=== PATIENT | male | born 1965 | race African-American/Black ===

== ENCOUNTER 2023-07-04 15:20 | Emergency (ER) | payer OTHER ==
[2023-07-04 15:29] VITALS: BMI 23.0
[2023-07-04] MEDS ORDERED: SODIUM CHLORIDE 0.9% 500 ML INFUS.BAG IV ONE ×2 (15:37→18:25)
[2023-07-04] MEDS ORDERED: KETOROLAC TROMETHAMINE 30 MG/1 ML VIAL IVPUSH ONE (15:37)
[2023-07-04] MEDS ORDERED: KETOROLAC TROMETHAMINE 30 MG/1 ML VIAL ONE (16:16)
[2023-07-04 16:26] LABS: BASO % 0.6 % (0-2.0); EOS % 4.3 % (0-4.5); HEMOGLOBIN 13.9 GM/dL (11.7-16.9); LYMPH % 22.4 % (8-40); MCHC 33.8 g/dl (32.0-35.9); MEAN CELL VOLUME 91.9 fl (80-96); MEAN PLT VOLUME 9.6 fl (7.5-11.1); MONO % 8.5 % (3.8-10.2); NEUT % 64.2 % (42.8-82.8); PLATELET COUNT 476 10^3/uL (134-434); RBC 4.47 M/mm3 (4.00-5.60); RDW 15.5 % (11.9-15.9)
[2023-07-04 16:41] LABS: POTASSIUM 4.2 mmol/L (3.5-5.1)
[2023-07-04 16:42] LABS: CALCIUM 8.3 mg/dL (8.5-10.1)
[2023-07-04 16:46] LABS: CREATININE 0.9 mg/dL (0.55-1.3)
[2023-07-04 17:08] LABS: EPI CELLS 24 /uL (0-25.1); HYALINE CASTS 2 /uL (0-3.1); PH,URINE 6.5 (5.0-8.0); URINE APPEARANCE TURBID; URINE BILIRUBIN NEGATIVE (NEGATIVE); URINE COLOR ORANGE; URINE GLUCOSE (UA) NEGATIVE (NEGATIVE); URINE KETONE NEGATIVE (NEGATIVE); URINE LEUK ESTERASE 3+ (NEGATIVE); URINE NITRITE NEGATIVE (NEGATIVE); URINE PROTEIN 2+ (NEGATIVE); URINE RBC 4935 /uL (0-23.9); URINE WBC 11309 /uL (0-25.8)
[2023-07-04] MEDS ORDERED: CEFTRIAXONE 1 GM in DEXTROSE 5%-WATER - 100 ML IVPB ONE (18:22)
[2023-07-04] MEDS ORDERED: TAMSULOSIN HCL 0.4 MG CAP PO ONE (18:25)
[2023-07-04] MEDS ORDERED: CEFTRIAXONE 1 GM/50 ML BAG ONE (18:53)
[2023-07-04] MEDS ORDERED: TAMSULOSIN HCL 0.4 MG CAP ONE (18:53)
[2023-07-04 19:39] LABS: URINE BACTERIA 330.7 /uL (0-1359)
[2023-07-04 19:40] LABS: URINE CRYSTALS FEW /hpf
[2023-07-04 21:12] VITALS: BP 146/73; PULSE 85; RESP 17; TEMP 98.1
[2023-07-04 21:40] LABS: EPI CELLS 28 /uL (0-25.1); HYALINE CASTS 3 /uL (0-3.1); PH,URINE 6.5 (5.0-8.0); URINE APPEARANCE TURBID; URINE BACTERIA 500 /uL (0-1359); URINE BILIRUBIN NEGATIVE (NEGATIVE); URINE COLOR YELLOW; URINE GLUCOSE (UA) NEGATIVE (NEGATIVE); URINE KETONE NEGATIVE (NEGATIVE); URINE LEUK ESTERASE 3+ (NEGATIVE); URINE NITRITE NEGATIVE (NEGATIVE); URINE PROTEIN 2+ (NEGATIVE); URINE RBC 671 /uL (0-23.9); URINE WBC 6364 /uL (0-25.8)
== END 2023-07-04 21:13 | disposition home or self-care (01) ==
LOC: JER 15:20
PROC: 3E03329 Introduction of Other Anti-infective into Peripheral Vein, Percutaneous Approach (ICD-10-PCS; principal; 2023-07-04)
PROC: 3E0333Z Introduction of Anti-inflammatory into Peripheral Vein, Percutaneous Approach (ICD-10-PCS; 2023-07-04)
DX: R10.9 Unspecified abdominal pain (principal); M54.9 Dorsalgia, unspecified; N20.0 Calculus of kidney; N30.01 Acute cystitis with hematuria
CPT/HCPCS: 36415; 74176-TC; 80048; 81003; 85025; 87086; 99284-25

== ENCOUNTER 2023-09-24 10:42 | Emergency (ER) | payer OTHER ==
[2023-09-24 11:14] VITALS: BMI 24.2
[2023-09-24 12:35] VITALS: RESP 20
[2023-09-24] MEDS ORDERED: BACITRACIN ZINC 15 GM TUBE TOPICAL OINTMENT ONE (13:47)
[2023-09-24 13:54] VITALS: BP 194/96; PULSE 64; TEMP 98.1
== END 2023-09-24 14:08 | disposition home or self-care (01) ==
LOC: JER 10:42
DX: S61.254A Open bite of right ring finger without damage to nail, initial encounter (principal); W54.0XXA Bitten by dog, initial encounter; Y92.009 Unspecified place in unspecified non-institutional (private) residence as the place of occurrence of the external cause
CPT/HCPCS: 99283-25

== ENCOUNTER 2023-12-27 15:05 | Inpatient (IN) | payer OTHER ==
[2023-12-27] MEDS ORDERED: ACETAMINOPHEN INJECTION 100 ML IVPB ONE (16:39)
[2023-12-27] MEDS ORDERED: ONDANSETRON 4 MG/2 ML VIAL ONE (16:39)
[2023-12-27] MEDS: ACETAMINOPHEN 1000 MG/100 ML BAG IVPB ONE (16:45)
[2023-12-27 16:52] LABS: BASO % 0.3 % (0-2.0); HEMATOCRIT 33.6 % (35.4-49); HEMOGLOBIN 11.1 GM/dL (11.7-16.9); LYMPH % 5.8 % (8-40); MCH 29.3 pg (25.7-33.7); MCHC 33.1 g/dl (32.0-35.9); MEAN CELL VOLUME 88.5 fl (80-96); MEAN PLT VOLUME 8.6 fl (7.5-11.1); MONO % 4.9 % (3.8-10.2); PLATELET COUNT 338 10^3/uL (134-434); RDW 15.5 % (11.9-15.9); WHITE BLOOD COUNT 17.8 K/mm3 (4.0-10.0)
[2023-12-27] MEDS: LACTATED RINGERS SOLUTION 1000 ML INFUS.BAG IV ONE ×2 (16:53→21:57)
[2023-12-27] MEDS: ONDANSETRON 4 MG/2 ML VIAL IVPUSH ONE (16:53)
[2023-12-27] MEDS: FAMOTIDINE 20 MG/50 ML IVPB 20 MG/50 ML MG IVPB ONE (16:54)
[2023-12-27 16:59] LABS: INR 1.38 (0.83-1.09); PROTHROMBIN TIME (PATIENT) 15.5 SEC (9.7-13.0)
[2023-12-27 17:01] LABS: ACTIVATED PTT 32.7 SECONDS (25.2-36.5)
[2023-12-27 17:14] LABS: CHLORIDE 105 mmol/L (98-107); SODIUM 132 mmol/L (136-145)
[2023-12-27 17:16] LABS: CALCIUM 8.9 mg/dL (8.5-10.1); CO2 17 mmol/L (21-32); GLUCOSE,RANDOM 79 mg/dL (74-106)
[2023-12-27 17:17] LABS: MAGNESIUM 2.5 mg/dL (1.8-2.4)
[2023-12-27 17:20] LABS: SGOT/AST 4 U/L (15-37); SGPT/ALT 24 U/L (13-61)
[2023-12-27 17:21] LABS: BILIRUBIN,TOTAL 0.3 mg/dL (0.2-1)
[2023-12-27 17:22] LABS: ALK PHOS 65 U/L (45-117)
[2023-12-27] MEDS ORDERED: morphine SULFATE 4 MG/ML VIAL ONE (17:22)
[2023-12-27] MEDS: morphine CARPU-JECT 4 MG/1 ML DISP.SYRIN IVPUSH ONE (17:23)
[2023-12-27 18:08] LABS: ANION GAP 10 mmol/L (4-13); BLOOD UREA NITROGEN 111.8 mg/dL (7-18); CREATININE 24.8 mg/dL (0.55-1.3); POTASSIUM 7.9 mmol/L (3.5-5.1)
[2023-12-27] MEDS ORDERED: ALBUTEROL SO4 2.5/IPRATROPIUM 0.5 INH SOL 3 ML VIAL.NEB. NEB ONE (18:20)
[2023-12-27] MEDS ORDERED: CALCIUM GLUC IN NACL, ISO-OSM 1 GM/50 ML BAG IVPB ONE (18:21)
[2023-12-27] MEDS ORDERED: FUROSEMIDE 40 MG/4 ML INJECTABLE VIAL ONE (18:21)
[2023-12-27] MEDS ORDERED: DEXTROSE 50%-WATER 25 GM/50 ML DISP.SYRIN ONE ×3 (18:21→22:30)
[2023-12-27] MEDS ORDERED: SODIUM ZIRCONIUM CYCLOSILICATE (LOKELMA) 10 GM PACKET ONE (18:21)
[2023-12-27] MEDS ORDERED: INSULIN REGULAR HUMAN 100 UNITS/ML *VIAL ONE (18:22)
[2023-12-27] MEDS: DEXTROSE 50%-WATER - 25 GM/50 ML VIAL IVPUSH ONE ×2 (18:55→22:48)
[2023-12-27] MEDS: CALCIUM GLUCONATE 10% - 1,000 MG/10 ML VIAL IVPB ONE (18:55)
[2023-12-27] MEDS: INSULIN REGULAR HUMAN 100 UNITS/ML *VIAL IVPUSH ONE ×2 (18:55→22:47)
[2023-12-27] MEDS: FUROSEMIDE 40 MG/4 ML INJECTABLE VIAL IVPUSH ONE (18:55)
[2023-12-27] MEDS: ALBUTEROL SO4 2.5/IPRATROPIUM 0.5 INH SOL 3 ML VIAL.NEB. NEB SCH (18:56)
[2023-12-27] MEDS: SODIUM ZIRCONIUM CYCLOSILICATE (LOKELMA) 5 GM PACKET PO ONE (18:57)
[2023-12-27] MEDS ORDERED: CEFTRIAXONE 1 GM/50 ML BAG ONE (19:33)
[2023-12-27 20:05] LABS: EPI CELLS 14 /uL (0-25.1); HYALINE CASTS 0 /uL (0-3.1); URINE APPEARANCE CLOUDY; URINE BACTERIA 5 /uL (0-1359); URINE BILIRUBIN NEGATIVE (NEGATIVE); URINE COLOR RED; URINE GLUCOSE (UA) 1+ (NEGATIVE); URINE KETONE NEGATIVE (NEGATIVE); URINE LEUK ESTERASE 2+ (NEGATIVE); URINE NITRITE NEGATIVE (NEGATIVE); URINE PROTEIN 1+ (NEGATIVE); URINE RBC 11529 /uL (0-23.9); URINE UROBILINOGEN 0.2 mg/dL (0.2-1.0); URINE WBC 149 /uL (0-25.8)
[2023-12-27] MEDS ORDERED: hydrALAZINE HCL 20 MG/ML VIAL ONE (20:17)
[2023-12-27] MEDS: hydrALAZINE HCL 20 MG/ML VIAL IVPUSH ONE (20:21)
[2023-12-27 21:08] LABS: VENOUS BASE EXCESS -12.7 mmol/L (-2-2); VENOUS O2 SATURATION 46.6 % (70-80); VENOUS PCO2 37.5 mmHg (38-52); VENOUS PH 7.204 (7.310-7.410)
[2023-12-27 21:22] LABS: CHLORIDE 104 mmol/L (98-107); SODIUM 135 mmol/L (136-145)
[2023-12-27 21:23] LABS: CHLORIDE 104 mmol/L (98-107); SODIUM 135 mmol/L (136-145)
[2023-12-27 21:23] LABS: CALCIUM 8.9 mg/dL (8.5-10.1)
[2023-12-27 21:24] LABS: CALCIUM 9.3 mg/dL (8.5-10.1)
[2023-12-27 21:24] LABS: CO2 18 mmol/L (21-32); GLUCOSE,RANDOM 193 mg/dL (74-106)
[2023-12-27 21:25] LABS: CO2 18 mmol/L (21-32); GLUCOSE,RANDOM 189 mg/dL (74-106)
[2023-12-27 21:52] LABS: ANION GAP 13 mmol/L (4-13); POTASSIUM 6.2 mmol/L (3.5-5.1)
[2023-12-27 21:53] LABS: ANION GAP 14 mmol/L (4-13); BLOOD UREA NITROGEN 105.4 mg/dL (7-18); POTASSIUM 6.1 mmol/L (3.5-5.1)
[2023-12-28] MEDS: SODIUM CHLORIDE 1,000 ML IV SCH (04:40)
[2023-12-28 07:57] LABS: BASO % 0.2 % (0-2.0); HEMATOCRIT 32.9 % (35.4-49); HEMOGLOBIN 10.7 GM/dL (11.7-16.9); LYMPH % 5.4 % (8-40); MCH 29.1 pg (25.7-33.7); MCHC 32.6 g/dl (32.0-35.9); MEAN CELL VOLUME 89.2 fl (80-96); MONO % 5.5 % (3.8-10.2); NEUT % 88.9 % (42.8-82.8); PLATELET COUNT 302 10^3/uL (134-434); RBC 3.68 M/mm3 (4.00-5.60); RDW 15.4 % (11.9-15.9); WHITE BLOOD COUNT 16.9 K/mm3 (4.0-10.0)
[2023-12-28 08:16] LABS: CHLORIDE 106 mmol/L (98-107); SODIUM 135 mmol/L (136-145)
[2023-12-28 08:18] LABS: ALBUMIN 3.3 g/dl (3.4-5.0); CALCIUM 8.8 mg/dL (8.5-10.1); CO2 18 mmol/L (21-32); GLUCOSE,RANDOM 83 mg/dL (74-106); MAGNESIUM 2.4 mg/dL (1.8-2.4)
[2023-12-28 08:21] LABS: PHOSPHOROUS 8.7 mg/dL (2.5-4.9); SGOT/AST 4 U/L (15-37); SGPT/ALT 17 U/L (13-61)
[2023-12-28 08:23] LABS: BILIRUBIN,TOTAL 0.4 mg/dL (0.2-1)
[2023-12-28 08:24] LABS: ALK PHOS 61 U/L (45-117)
[2023-12-28 08:34] LABS: ANION GAP 11 mmol/L (4-13); BLOOD UREA NITROGEN 111.5 mg/dL (7-18)
[2023-12-28] MEDS: PIPERACILLIN/TAZOB 3.375 GM 3.375 GM in DEXTROSE 5%-WATER - 50 ML IVPB ONE (08:51)
[2023-12-28] MEDS ORDERED: SODIUM CHLORIDE 250 ML IV PRN (09:07)
[2023-12-28] MEDS: NICOTINE 21 MG/24 HOURS TOPICAL PATCH TD SCH (09:12)
[2023-12-28] MEDS: ALBUTEROL SO4 0.083% IH SOL 2.5 MG/3 ML VIAL.NEB. NEB ONE (09:13)
[2023-12-28] MEDS: CALCIUM GLUCONATE 10% - 1,000 MG/10 ML VIAL IVPB ONE (09:27)
[2023-12-28] MEDS: MIDAZOLAM HCL 2 MG/2 ML SINGLE DOSE VIAL IVPUSH ONE (10:25)
[2023-12-28] MEDS: FENTANYL CITRATE/PF 50 MCG/ML VIAL IVPUSH ONE (10:25)
[2023-12-28] MEDS ORDERED: SODIUM CHLORIDE 1,000 ML IV SCH (11:24)
[2023-12-28] MEDS: LABETALOL HCL 5 MG/1 ML (100MG/20 ML VIAL) IVPUSH ONE (15:49)
[2023-12-28 16:37] LABS: CHLORIDE 103 mmol/L (98-107); POTASSIUM 4.8 mmol/L (3.5-5.1); SODIUM 140 mmol/L (136-145)
[2023-12-28 16:39] LABS: CALCIUM 8.9 mg/dL (8.5-10.1)
[2023-12-28 16:40] LABS: ALBUMIN 3.2 g/dl (3.4-5.0); ANION GAP 11 mmol/L (4-13); CO2 26 mmol/L (21-32); GLUCOSE,RANDOM 77 mg/dL (74-106)
[2023-12-28 16:43] LABS: SGOT/AST 5 U/L (15-37); SGPT/ALT 17 U/L (13-61)
[2023-12-28] MEDS: hydrALAZINE HCL 20 MG/ML VIAL IVPUSH PRN (16:43)
[2023-12-28 16:44] LABS: TOT PROT 6.9 g/dl (6.4-8.2)
[2023-12-28 16:45] LABS: BILIRUBIN,TOTAL 0.4 mg/dL (0.2-1)
[2023-12-28 16:46] LABS: ALK PHOS 58 U/L (45-117)
[2023-12-28 16:47] LABS: BLOOD UREA NITROGEN 60.3 mg/dL (7-18); CREATININE 14.2 mg/dL (0.55-1.3)
[2023-12-28] MEDS ORDERED: SODIUM ZIRCONIUM CYCLOSILICATE (LOKELMA) 5 GM PACKET PO ONE (18:13)
[2023-12-28] MEDS: amLODIPine BESYLATE 10 MG TABLET (FP) PO SCH (21:00)
[2023-12-28] MEDS ORDERED: SODIUM ZIRCONIUM CYCLOSILICATE (LOKELMA) 5 GM PACKET PO SCH (22:10)
[2023-12-28] MEDS: SODIUM ZIRCONIUM CYCLOSILICATE (LOKELMA) 5 GM PACKET PO SCH (23:19)
[2023-12-29 06:56] LABS: BASO % 0.3 % (0-2.0); EOS % 1.2 % (0-4.5); HEMATOCRIT 32.7 % (35.4-49); HEMOGLOBIN 10.8 GM/dL (11.7-16.9); LYMPH % 10.9 % (8-40); MCH 29.6 pg (25.7-33.7); MEAN CELL VOLUME 89.7 fl (80-96); MEAN PLT VOLUME 9.1 fl (7.5-11.1); MONO % 8.5 % (3.8-10.2); NEUT % 79.1 % (42.8-82.8); PLATELET COUNT 313 10^3/uL (134-434); RBC 3.65 M/mm3 (4.00-5.60); RDW 15.7 % (11.9-15.9); WHITE BLOOD COUNT 13.8 K/mm3 (4.0-10.0)
[2023-12-29 07:07] LABS: CHLORIDE 105 mmol/L (98-107); POTASSIUM 5.4 mmol/L (3.5-5.1); SODIUM 141 mmol/L (136-145)
[2023-12-29 07:13] LABS: ALBUMIN 3.2 g/dl (3.4-5.0); ANION GAP 10 mmol/L (4-13); CALCIUM 8.8 mg/dL (8.5-10.1); CO2 25 mmol/L (21-32); GLUCOSE,RANDOM 106 mg/dL (74-106); MAGNESIUM 2.1 mg/dL (1.8-2.4)
[2023-12-29 07:16] LABS: SGOT/AST 6 U/L (15-37); SGPT/ALT 14 U/L (13-61)
[2023-12-29 07:17] LABS: BLOOD UREA NITROGEN 62.2 mg/dL (7-18); PHOSPHOROUS 8.4 mg/dL (2.5-4.9)
[2023-12-29 07:18] LABS: BILIRUBIN,TOTAL 0.4 mg/dL (0.2-1); TOT PROT 7.1 g/dl (6.4-8.2)
[2023-12-29 07:19] LABS: ALK PHOS 55 U/L (45-117)
[2023-12-29 07:27] LABS: CREATININE 14.6 mg/dL (0.55-1.3)
[2023-12-29 08:11] LABS: IRON SERUM 36 ug/dL (50-175); TOTAL IRON BINDING CAPACITY 196 ug/dL (250-450)
[2023-12-29 09:28] LABS: RETICULOCYTES 1.36 % (0.5-1.5)
[2023-12-29] MEDS: NICOTINE 21 MG/24 HOURS TOPICAL PATCH TD SCH (10:26)
[2023-12-29] MEDS: SODIUM ZIRCONIUM CYCLOSILICATE (LOKELMA) 5 GM PACKET PO SCH (11:27)
[2023-12-29] MEDS ORDERED: MIDAZOLAM HCL 2 MG/2 ML SINGLE DOSE VIAL ONE (13:23)
[2023-12-29] MEDS: FENTANYL CITRATE/PF 50 MCG/ML VIAL IVPUSH ONE (13:40)
[2023-12-29] MEDS: MIDAZOLAM HCL 2 MG/2 ML SINGLE DOSE VIAL IVPUSH ONE (13:40)
[2023-12-29] MEDS: SODIUM CHLORIDE 0.45% 1,000 ML IV SCH (15:26)
[2023-12-30 06:46] LABS: MCH 29.3 pg (25.7-33.7); MCHC 32.3 g/dl (32.0-35.9); MEAN CELL VOLUME 90.9 fl (80-96); MEAN PLT VOLUME 8.9 fl (7.5-11.1); PLATELET COUNT 295 10^3/uL (134-434); RBC 3.41 M/mm3 (4.00-5.60); RDW 15.5 % (11.9-15.9); WHITE BLOOD COUNT 11.3 K/mm3 (4.0-10.0)
[2023-12-30 07:00] LABS: CHLORIDE 102 mmol/L (98-107); POTASSIUM 4.5 mmol/L (3.5-5.1); SODIUM 138 mmol/L (136-145)
[2023-12-30 07:03] LABS: ANION GAP 10 mmol/L (4-13); CALCIUM 8.3 mg/dL (8.5-10.1); CO2 26 mmol/L (21-32)
[2023-12-30 07:04] LABS: BLOOD UREA NITROGEN 61.2 mg/dL (7-18); GLUCOSE,RANDOM 129 mg/dL (74-106)
[2023-12-30 07:06] LABS: SGOT/AST 5 U/L (15-37); SGPT/ALT 12 U/L (13-61)
[2023-12-30 07:07] LABS: PHOSPHOROUS 7.3 mg/dL (2.5-4.9)
[2023-12-30 07:08] LABS: BILIRUBIN,TOTAL 0.4 mg/dL (0.2-1); TOT PROT 6.7 g/dl (6.4-8.2)
[2023-12-30 07:09] LABS: ALK PHOS 50 U/L (45-117)
[2023-12-30 07:35] LABS: CREATININE 13.1 mg/dL (0.55-1.3)
[2023-12-30] MEDS ORDERED: SODIUM CHLORIDE 250 ML IV PRN (08:38)
[2023-12-30] MEDS: HEPARIN NA (PORCINE) 5,000 UNITS/ML 1ML VIAL SQ SCH (21:38)
[2023-12-30] MEDS: ACETAMINOPHEN 1000 MG/100 ML BAG IVPB PRN (21:48)
[2023-12-31] MEDS ORDERED: DEXTROSE 50%-WATER 25 GM/50 ML DISP.SYRIN ONE (00:02)
[2023-12-31 06:42] LABS: HEMATOCRIT 30.9 % (35.4-49); HEMOGLOBIN 10.3 GM/dL (11.7-16.9); MCHC 33.3 g/dl (32.0-35.9); MEAN CELL VOLUME 89.9 fl (80-96); MEAN PLT VOLUME 8.2 fl (7.5-11.1); PLATELET COUNT 269 10^3/uL (134-434); RBC 3.44 M/mm3 (4.00-5.60); WHITE BLOOD COUNT 7.5 K/mm3 (4.0-10.0)
[2023-12-31 07:00] LABS: CHLORIDE 100 mmol/L (98-107); POTASSIUM 3.5 mmol/L (3.5-5.1); SODIUM 137 mmol/L (136-145)
[2023-12-31 07:05] LABS: ANION GAP 9 mmol/L (4-13); BLOOD UREA NITROGEN 37.3 mg/dL (7-18); CALCIUM 7.7 mg/dL (8.5-10.1); CO2 27 mmol/L (21-32); GLUCOSE,RANDOM 85 mg/dL (74-106); MAGNESIUM 1.7 mg/dL (1.8-2.4)
[2023-12-31 07:08] LABS: PHOSPHOROUS 5.5 mg/dL (2.5-4.9); SGOT/AST 12 U/L (15-37); SGPT/ALT 14 U/L (13-61)
[2023-12-31 07:10] LABS: BILIRUBIN,TOTAL 0.4 mg/dL (0.2-1); TOT PROT 6.6 g/dl (6.4-8.2)
[2023-12-31 07:11] LABS: ALK PHOS 46 U/L (45-117)
[2023-12-31] MEDS: MAGNESIUM OXIDE 400 MG TABLET (FP) PO ONE (12:21)
[2023-12-31] MEDS ORDERED: hydrALAZINE HCL 20 MG/ML VIAL IVPUSH PRN (17:19)
[2023-12-31] MEDS: SODIUM CHLORIDE 0.45% 1,000 ML IV SCH (18:00)
[2023-12-31] MEDS: ACETAMINOPHEN 325 MG TABLET (FP) PO ONE (23:23)
[2024-01-01 07:46] LABS: HEMATOCRIT 29.8 % (35.4-49); HEMOGLOBIN 9.9 GM/dL (11.7-16.9); MCH 29.9 pg (25.7-33.7); MCHC 33.2 g/dl (32.0-35.9); MEAN CELL VOLUME 89.9 fl (80-96); MEAN PLT VOLUME 8.5 fl (7.5-11.1); PLATELET COUNT 309 10^3/uL (134-434); RBC 3.32 M/mm3 (4.00-5.60); RDW 15.2 % (11.9-15.9)
[2024-01-01 08:10] LABS: CHLORIDE 102 mmol/L (98-107); POTASSIUM 4.2 mmol/L (3.5-5.1); SODIUM 138 mmol/L (136-145)
[2024-01-01 08:11] LABS: ANION GAP 8 mmol/L (4-13); BLOOD UREA NITROGEN 51.9 mg/dL (7-18); CALCIUM 8.1 mg/dL (8.5-10.1); CO2 28 mmol/L (21-32); GLUCOSE,RANDOM 82 mg/dL (74-106); MAGNESIUM 2.2 mg/dL (1.8-2.4)
[2024-01-01 08:14] LABS: SGOT/AST 17 U/L (15-37)
[2024-01-01 08:15] LABS: SGPT/ALT 24 U/L (13-61)
[2024-01-01 08:16] LABS: ALK PHOS 50 U/L (45-117); BILIRUBIN,TOTAL 0.3 mg/dL (0.2-1); TOT PROT 6.4 g/dl (6.4-8.2)
[2024-01-01 08:18] LABS: CREATININE 7.5 mg/dL (0.55-1.3)
[2024-01-01] MEDS: amLODIPine BESYLATE 10 MG TABLET (FP) PO SCH (09:10)
[2024-01-01] MEDS: NICOTINE 21 MG/24 HOURS TOPICAL PATCH TD SCH (09:15)
[2024-01-01] MEDS ORDERED: SODIUM CHLORIDE 250 ML IV PRN ×2 (13:47→22:12)
[2024-01-01] MEDS ORDERED: ONDANSETRON 4 MG/2 ML VIAL IVPUSH PRN ×2 (18:51→22:12)
[2024-01-01] MEDS ORDERED: LIDOCAINE HCL/PF 2% SDV 5ML VIAL ONE (19:49)
[2024-01-01] MEDS ORDERED: PROPOFOL 20 ML ONE (19:50)
[2024-01-01] MEDS ORDERED: FENTANYL CITRATE/PF 50 MCG/ML VIAL ONE (20:23)
[2024-01-01] MEDS ORDERED: MIDAZOLAM HCL 2 MG/2 ML SINGLE DOSE VIAL ONE (20:23)
[2024-01-01] MEDS ORDERED: ACETAMINOPHEN INJECTION 100 ML IVPB ONE (20:24)
[2024-01-01] MEDS: ceFAZolin SODIUM 1 GM VIAL IVPB ONE (20:30)
[2024-01-01] MEDS: GENTAMICIN SO4 80 MG/2 ML VIAL IVPB ONE (20:30)
[2024-01-01] MEDS ORDERED: GENTAMICIN SO4 80 MG/2 ML VIAL ONE (20:35)
[2024-01-01] MEDS ORDERED: ceFAZolin SODIUM 1 GM VIAL ONE (20:35)
[2024-01-01] MEDS ORDERED: SODIUM CHLORIDE 0.9% P/F 10 ML VIAL IJ ONE (20:35)
[2024-01-01] MEDS ORDERED: ePHEDrine SULFATE 50 MG/1 ML AMPULE ONE (21:08)
[2024-01-01] MEDS ORDERED: METHYLENE BLUE 50 MG/10 ML AMPUL ONE (21:11)
[2024-01-01] MEDS ORDERED: hydrALAZINE HCL 20 MG/ML VIAL IVPUSH PRN (22:12)
[2024-01-01] MEDS: SODIUM CHLORIDE 1,000 ML IV SCH ×2 (22:30→23:30)
[2024-01-01 23:17] VITALS: RESP 18
[2024-01-02] MEDS: ACETAMINOPHEN 325 MG TABLET (FP) PO ONE ×2 (05:19→14:16)
[2024-01-02 07:49] LABS: HEMATOCRIT 30.7 % (35.4-49); MCH 29.4 pg (25.7-33.7); MCHC 32.4 g/dl (32.0-35.9); MEAN CELL VOLUME 90.8 fl (80-96); MEAN PLT VOLUME 8.1 fl (7.5-11.1); PLATELET COUNT 340 10^3/uL (134-434); RBC 3.38 M/mm3 (4.00-5.60); RDW 15.4 % (11.9-15.9); WHITE BLOOD COUNT 10.1 K/mm3 (4.0-10.0)
[2024-01-02 08:11] LABS: CHLORIDE 102 mmol/L (98-107); SODIUM 135 mmol/L (136-145)
[2024-01-02 08:14] LABS: ALBUMIN 3.1 g/dl (3.4-5.0); ANION GAP 8 mmol/L (4-13); BLOOD UREA NITROGEN 63.6 mg/dL (7-18); CALCIUM 8.4 mg/dL (8.5-10.1); CO2 25 mmol/L (21-32); GLUCOSE,RANDOM 159 mg/dL (74-106); MAGNESIUM 2.2 mg/dL (1.8-2.4)
[2024-01-02 08:18] LABS: BILIRUBIN,TOTAL 0.3 mg/dL (0.2-1); PHOSPHOROUS 5.6 mg/dL (2.5-4.9); SGOT/AST 13 U/L (15-37); SGPT/ALT 19 U/L (13-61)
[2024-01-02 08:20] LABS: TOT PROT 7.1 g/dl (6.4-8.2)
[2024-01-02 08:21] LABS: ALK PHOS 50 U/L (45-117)
[2024-01-02 08:26] LABS: CREATININE 8.1 mg/dL (0.55-1.3)
[2024-01-02] MEDS: amLODIPine BESYLATE 10 MG TABLET (FP) PO SCH (14:11)
[2024-01-02] MEDS: NICOTINE 21 MG/24 HOURS TOPICAL PATCH TD SCH (14:34)
[2024-01-02] MEDS: ACETAMINOPHEN 325 MG TABLET (FP) PO PRN (18:57)
[2024-01-03 08:18] LABS: HEMATOCRIT 26.5 % (35.4-49); HEMOGLOBIN 8.8 GM/dL (11.7-16.9); MCH 30.2 pg (25.7-33.7); MCHC 33.3 g/dl (32.0-35.9); MEAN CELL VOLUME 90.7 fl (80-96); MEAN PLT VOLUME 8.4 fl (7.5-11.1); PLATELET COUNT 312 10^3/uL (134-434); RBC 2.92 M/mm3 (4.00-5.60); RDW 14.9 % (11.9-15.9); WHITE BLOOD COUNT 11.9 K/mm3 (4.0-10.0)
[2024-01-03 08:33] LABS: POTASSIUM 4.2 mmol/L (3.5-5.1)
[2024-01-03 08:35] LABS: CALCIUM 8.4 mg/dL (8.5-10.1)
[2024-01-03 08:36] LABS: BLOOD UREA NITROGEN 43.2 mg/dL (7-18)
[2024-01-03 08:40] LABS: CREATININE 4.7 mg/dL (0.55-1.3); PHOSPHOROUS 3.6 mg/dL (2.5-4.9)
[2024-01-03 13:51] VITALS: BMI 19.7
[2024-01-03] MEDS: SODIUM CHLORIDE 0.45% 1,000 ML IV SCH (14:01)
[2024-01-04 09:12] LABS: HEMATOCRIT 29.2 % (35.4-49); HEMOGLOBIN 9.6 GM/dL (11.7-16.9); MCH 29.8 pg (25.7-33.7); MEAN CELL VOLUME 90.3 fl (80-96); MEAN PLT VOLUME 8.1 fl (7.5-11.1); PLATELET COUNT 377 10^3/uL (134-434); RBC 3.23 M/mm3 (4.00-5.60); RDW 15.3 % (11.9-15.9); WHITE BLOOD COUNT 10.2 K/mm3 (4.0-10.0)
[2024-01-04 09:25] LABS: POTASSIUM 4.5 mmol/L (3.5-5.1)
[2024-01-04 09:33] LABS: BLOOD UREA NITROGEN 62.7 mg/dL (7-18); CALCIUM 8.3 mg/dL (8.5-10.1)
[2024-01-04 09:36] LABS: CREATININE 5.3 mg/dL (0.55-1.3)
[2024-01-04 10:46] LABS: ANISOCYTOSIS 0; HELMET CELLS 0; HOWELL-JOLLY BODIES 0; MACROCYTOSIS 0; OVALOCYTE 0; ROULEAU 0; SICKELED CELLS 0; TARGET CELLS 0; TEAR DROP CELLS 0; TOXIC GRANULATION 0
[2024-01-05 05:37] VITALS: TEMP 97.6
[2024-01-05] MEDS ORDERED: hydrALAZINE HCL 10 MG TABLET PO PRN (08:15)
[2024-01-05 08:31] LABS: HEMATOCRIT 30.9 % (35.4-49); MCH 29.5 pg (25.7-33.7); MCHC 32.3 g/dl (32.0-35.9); MEAN CELL VOLUME 91.3 fl (80-96); MEAN PLT VOLUME 8.5 fl (7.5-11.1); PLATELET COUNT 410 10^3/uL (134-434); RBC 3.38 M/mm3 (4.00-5.60); RDW 15.4 % (11.9-15.9); WHITE BLOOD COUNT 10.6 K/mm3 (4.0-10.0)
[2024-01-05 08:55] LABS: POTASSIUM 4.7 mmol/L (3.5-5.1)
[2024-01-05 09:00] LABS: CALCIUM 8.5 mg/dL (8.5-10.1)
[2024-01-05 09:04] LABS: CREATININE 5.3 mg/dL (0.55-1.3)
[2024-01-05 16:16] VITALS: BP 128/72; PULSE 72
[2024-01-09 15:09] LABS: CA OXALATE MONOHYDR. 100 % (.); SIZE 3x3 mm (.); WEIGHT 32 mg (.)
== END 2024-01-05 18:10 | disposition home or self-care (01) | DRG 443 ==
LOC: JER 15:05 → JERBED 19:31 → J4S 22:05 → J2W 12-28 09:36 → J6S 12-31 17:01
PROVIDERS: ADMIT Internal Medicine; ATTEND Internal Medicine
PROC: 05HM33Z Insertion of Infusion Device into Right Internal Jugular Vein, Percutaneous Approach (ICD-10-PCS; principal; 2023-12-27)
PROC: B543ZZA Ultrasonography of Right Jugular Veins, Guidance (ICD-10-PCS; 2023-12-27)
PROC: BT14ZZZ Fluoroscopy of Kidneys, Ureters and Bladder (ICD-10-PCS; 2023-12-27)
PROC: 0T788DZ Dilation of Bilateral Ureters with Intraluminal Device, Via Natural or Artificial Opening Endoscopic (ICD-10-PCS; 2023-12-27)
PROC: 0TC78ZZ Extirpation of Matter from Left Ureter, Via Natural or Artificial Opening Endoscopic (ICD-10-PCS; 2023-12-27)
PROC: BT03ZZZ Plain Radiography of Bilateral Kidneys (ICD-10-PCS; 2023-12-27)
PROC: 0TP5X0Z Removal of Drainage Device from Kidney, External Approach (ICD-10-PCS; 2023-12-27)
PROC: 5A1D70Z Performance of Urinary Filtration, Intermittent, Less than 6 Hours Per Day (ICD-10-PCS; 2024-01-02)
PROC: 0T9430Z Drainage of Left Kidney Pelvis with Drainage Device, Percutaneous Approach (ICD-10-PCS; 2024-01-02)
PROC: 0T9330Z Drainage of Right Kidney Pelvis with Drainage Device, Percutaneous Approach (ICD-10-PCS; 2024-01-02)
DX: N17.9 Acute kidney failure, unspecified (principal); E87.20 Acidosis, unspecified; E87.5 Hyperkalemia; R18.8 Other ascites; N13.4 Hydroureter; N13.8 Other obstructive and reflux uropathy; I12.9 Hypertensive chronic kidney disease with stage 1 through stage 4 chronic kidney disease, or unspecified chronic kidney disease; N18.9 Chronic kidney disease, unspecified; N13.2 Hydronephrosis with renal and ureteral calculous obstruction; R63.0 Anorexia; E46 Unspecified protein-calorie malnutrition; Z68.20 Body mass index [BMI] 20.0-20.9, adult; D64.9 Anemia, unspecified; F17.210 Nicotine dependence, cigarettes, uncomplicated; I16.1 Hypertensive emergency; D72.829 Elevated white blood cell count, unspecified
CPT/HCPCS: 36415; 50432; 71045-TC-FY; 71046-TC-FY; 71250-TC; 74176-TC; 76000-TC-FY; 76775-TC; 80048; 80053; 81003; 82360; 82550; 82728; 82803; 82962; 83540; 83550; 83605; 83690; 83735; 84100; 84484; 85025; 85027; 85045; 85610; 85730; 86704; 86705; 86803; 86850; 86900; 86901; 87086; 87340; 87517; 88300-TC; 93005; 93010; 94760; 99285-25; C2617; J0131; J1644; Q9968

== ENCOUNTER 2024-11-25 11:54 | Inpatient (IN) | payer OTHER ==
[2024-11-25] MEDS ORDERED: ACETAMINOPHEN INJECTION 100 ML ONE (12:51)
[2024-11-25] MEDS ORDERED: ONDANSETRON 4 MG/2 ML VIAL ONE (12:52)
[2024-11-25 13:19] LABS: BASOPHILS # 0.07 x10^3/uL (0.01-0.08); EOSINOPHIL % 0.3 % (0.8-7.0); EOSINOPHILS # 0.04 x10^3/uL (0.04-0.54); HEMATOCRIT 32.7 % (40.1-51.0); HEMOGLOBIN 10.7 g/dL (13.7-17.5); MCHC 32.7 g/dl (32.3-36.5); MEAN CELL VOLUME 90.1 fl (79.0-92.2); MONOCYTE # 1.33 x10^3/uL (0.30-0.82); MONOCYTE % 8.6 % (5.3-12.2); PLATELET COUNT 300 x10^3/uL (163-337); RDW 15.2 % (12.2-16.1)
[2024-11-25 13:25] LABS: VENOUS BASE EXCESS -1.6 mmol/L (-2-2); VENOUS O2 SATURATION 83.2 % (70-80); VENOUS PCO2 32.6 mmHg (38-52); VENOUS PH 7.443 (7.310-7.410)
[2024-11-25] MEDS: ONDANSETRON 4 MG/2 ML VIAL IVPUSH ONE (13:30)
[2024-11-25] MEDS: SODIUM CHLORIDE 0.9% 1000 ML INFUS.BAG IV ONE (13:35)
[2024-11-25] MEDS: ACETAMINOPHEN 1000 MG/100 ML BAG IVPB ONE ×2 (13:36→21:22)
[2024-11-25 13:45] LABS: EPI CELLS 1 /uL (0-25.1); HYALINE CASTS 1 /uL (0-3.1); URINE APPEARANCE CLEAR; URINE BACTERIA 102 /uL (0-1359); URINE BILIRUBIN NEGATIVE (NEGATIVE); URINE COLOR YELLOW; URINE GLUCOSE (UA) NEGATIVE (NEGATIVE); URINE KETONE NEGATIVE (NEGATIVE); URINE LEUK ESTERASE 3+ (NEGATIVE); URINE NITRITE NEGATIVE (NEGATIVE); URINE PROTEIN TRACE (NEGATIVE); URINE RBC 41 /uL (0-23.9); URINE UROBILINOGEN 0.2 mg/dL (0.2-1.0); URINE WBC 847 /uL (0-25.8)
[2024-11-25 13:51] LABS: POTASSIUM 4.7 mmol/L (3.5-5.1)
[2024-11-25 13:55] LABS: ALBUMIN 3.6 g/dl (3.4-5.0); BLOOD UREA NITROGEN 32.6 mg/dL (7-18); CALCIUM 8.7 mg/dL (8.5-10.1)
[2024-11-25 13:58] LABS: CREATININE 3.8 mg/dL (0.55-1.3)
[2024-11-25 14:00] LABS: BILIRUBIN,TOTAL 0.4 mg/dL (0.2-1); TOT PROT 7.4 g/dl (6.4-8.2)
[2024-11-25] MEDS ORDERED: PIPERACILLIN/TAZOB 3.375 GM 3.375 GM/50 ML BAG IVPB ONE (14:04)
[2024-11-25] MEDS: PIPERACILLIN/TAZOB 3.375 GM 3.375 GM in DEXTROSE 5%-WATER - 50 ML IVPB ONE (14:08)
[2024-11-25] MEDS: SODIUM CHLORIDE 1,000 ML IV STA (16:45)
[2024-11-25] MEDS ORDERED: SODIUM CHLORIDE 1,000 ML IV SCH (17:26)
[2024-11-25] MEDS: SODIUM CHLORIDE 1,000 ML IV SCH ×2 (17:29→19:30)
[2024-11-25] MEDS ORDERED: ACETAMINOPHEN 325 MG TABLET (FP) ONE (17:33)
[2024-11-25] MEDS ORDERED: VANCOMYCIN 1 GM PREMIX (F) 1 GM/200 ML BAG ONE (17:33)
[2024-11-25] MEDS: ACETAMINOPHEN 325 MG TABLET (FP) PO ONE (17:34)
[2024-11-25] MEDS: VANCOMYCIN 1 GM PREMIX (F) 1 GM/200 ML BAG IVPB ONE (17:38)
[2024-11-25] MEDS ORDERED: ACETAMINOPHEN 325 MG TABLET (FP) PO PRN (20:00)
[2024-11-25] MEDS ORDERED: ONDANSETRON 4 MG/2 ML VIAL IVPUSH PRN (20:20)
[2024-11-25] MEDS: FERROUS GLUCONATE 324 MG TAB (FP) PO SCH (21:24)
[2024-11-25] MEDS: PIPERACILLIN/TAZOB 2.25 GM 2.25 GM/50 ML BAG IVPB SCH (21:24)
[2024-11-25] MEDS ORDERED: PIPERACILLIN/TAZOB 2.25 GM 2.25 GM in DEXTROSE 5%-WATER - 50 ML IVPB SCH (22:00)
[2024-11-26 00:24] LABS: HCV DIAGNOSTIC IN-HOUSE W/RFLX NON-REACTIVE (NONREACTIVE)
[2024-11-26 00:26] LABS: HIV INTERPRETATION NEGATIVE (NEGATIVE)
[2024-11-26] MEDS ORDERED: diphenhydrAMINE HCL 25 MG CAPSULE (FP) PO ONE (00:39)
[2024-11-26] MEDS: diphenhydrAMINE HCL 25 MG CAPSULE (FP) PO ONE (03:33)
[2024-11-26 06:48] LABS: HEMATOCRIT 31.3 % (40.1-51.0); HEMOGLOBIN 9.7 g/dL (13.7-17.5); MEAN PLT VOLUME 11.1 fl (9.4-12.4); PLATELET COUNT 227 x10^3/uL (163-337); RDW 15.9 % (12.2-16.1)
[2024-11-26 06:52] LABS: POTASSIUM 5.2 mmol/L (3.5-5.1)
[2024-11-26 06:59] LABS: CALCIUM 7.8 mg/dL (8.5-10.1)
[2024-11-26 07:00] LABS: ALBUMIN 2.8 g/dl (3.4-5.0); MAGNESIUM 1.7 mg/dL (1.8-2.4)
[2024-11-26 07:02] LABS: CREATININE 4.5 mg/dL (0.55-1.3)
[2024-11-26 07:03] LABS: BILIRUBIN,TOTAL 0.6 mg/dL (0.2-1)
[2024-11-26] MEDS: TAMSULOSIN HCL 0.4 MG CAP PO SCH (09:01)
[2024-11-26] MEDS: MAGNESIUM SULFATE IN WATER 2 GM/50 ML IVPB IVPB ONE (09:01)
[2024-11-26] MEDS: SODIUM ZIRCONIUM CYCLOSILICATE (LOKELMA) 5 GM PACKET PO SCH (09:07)
[2024-11-26] MEDS: NICOTINE 21 MG/24 HOURS TOPICAL PATCH TD SCH (09:07)
[2024-11-26] MEDS: ACETAMINOPHEN 325 MG TABLET (FP) PO PRN (13:10)
[2024-11-26] MEDS ORDERED: ONDANSETRON 4 MG/2 ML VIAL IVPUSH PRN ×3 (17:00→18:26)
[2024-11-26] MEDS ORDERED: LACTATED RINGERS SOLUTION 1,000 ML IV SCH (17:00)
[2024-11-26] MEDS ORDERED: PROPOFOL 20 ML ONE (17:15)
[2024-11-26] MEDS ORDERED: ROCURONIUM BROMIDE 50 MG/5 ML SYRINGE ONE (17:16)
[2024-11-26] MEDS: ceFAZolin SODIUM 1 GM VIAL IVPB ONE (17:30)
[2024-11-26] MEDS: GENTAMICIN 80MG PREMIX BAG IVPB ONE (17:30)
[2024-11-26] MEDS ORDERED: NEOSTIGMINE METHYLSULFATE 0.5 MG/1 ML - 10 ML MDV ONE (17:57)
[2024-11-26] MEDS: PIPERACILLIN/TAZOB 2.25 GM 2.25 GM in DEXTROSE 5%-WATER - 50 ML IVPB SCH (18:02)
[2024-11-26] MEDS: LACTATED RINGERS SOLUTION 1,000 ML IV SCH (18:32)
[2024-11-26] MEDS ORDERED: PIPERACILLIN/TAZOB 2.25 GM 2.25 GM in DEXTROSE 5%-WATER - 50 ML IVPB SCH ×2 (19:00→22:00)
[2024-11-26] MEDS: FERROUS GLUCONATE 324 MG TAB (FP) PO SCH (21:22)
[2024-11-26] MEDS: PIPERACILLIN/TAZOB 2.25 GM 2.25 GM/50 ML BAG IVPB SCH (21:37)
[2024-11-27 06:51] LABS: HEMATOCRIT 29.5 % (40.1-51.0); HEMOGLOBIN 9.4 g/dL (13.7-17.5); MCHC 31.9 g/dl (32.3-36.5); MEAN CELL VOLUME 91.6 fl (79.0-92.2); MEAN PLT VOLUME 11.2 fl (9.4-12.4); PLATELET COUNT 190 x10^3/uL (163-337); RDW 15.9 % (12.2-16.1)
[2024-11-27 07:11] LABS: POTASSIUM 4.9 mmol/L (3.5-5.1)
[2024-11-27 07:14] LABS: ALBUMIN 2.7 g/dl (3.4-5.0); BLOOD UREA NITROGEN 37.4 mg/dL (7-18); CALCIUM 7.9 mg/dL (8.5-10.1)
[2024-11-27 07:18] LABS: CREATININE 4.3 mg/dL (0.55-1.3)
[2024-11-27 07:20] LABS: BILIRUBIN,TOTAL 0.2 mg/dL (0.2-1); TOT PROT 6.3 g/dl (6.4-8.2)
[2024-11-27] MEDS: SODIUM ZIRCONIUM CYCLOSILICATE (LOKELMA) 5 GM PACKET PO SCH (09:21)
[2024-11-27] MEDS: TAMSULOSIN HCL 0.4 MG CAP PO SCH (09:21)
[2024-11-27] MEDS: NICOTINE 21 MG/24 HOURS TOPICAL PATCH TD SCH (09:22)
[2024-11-27] MEDS: SODIUM CHLORIDE 1,000 ML IV SCH (09:30)
[2024-11-28 07:31] LABS: ABSOLUTE IMMATURE GRANULOCYTES 0.04 x10^3/uL (0.0-0.031); BASOPHILS # 0.03 x10^3/uL (0.01-0.08); EOSINOPHIL % 0.5 % (0.8-7.0); EOSINOPHILS # 0.05 x10^3/uL (0.04-0.54); HEMATOCRIT 27.8 % (40.1-51.0); MCHC 32.4 g/dl (32.3-36.5); MEAN CELL VOLUME 89.7 fl (79.0-92.2); MEAN PLT VOLUME 11.1 fl (9.4-12.4); MONOCYTE # 1.15 x10^3/uL (0.30-0.82); MONOCYTE % 12.4 % (5.3-12.2); PLATELET COUNT 207 x10^3/uL (163-337); RDW 15.7 % (12.2-16.1)
[2024-11-28 08:02] LABS: ALBUMIN 2.7 g/dl (3.4-5.0); BLOOD UREA NITROGEN 35.5 mg/dL (7-18); CALCIUM 7.9 mg/dL (8.5-10.1)
[2024-11-28 08:03] LABS: MAGNESIUM 2.1 mg/dL (1.8-2.4)
[2024-11-28 08:05] LABS: CREATININE 3.9 mg/dL (0.55-1.3); PHOSPHOROUS 2.9 mg/dL (2.5-4.9)
[2024-11-28 08:07] LABS: BILIRUBIN,TOTAL 0.3 mg/dL (0.2-1); TOT PROT 6.2 g/dl (6.4-8.2)
[2024-11-28] MEDS: amLODIPine BESYLATE 10 MG TABLET (FP) PO SCH (09:33)
[2024-11-28 10:07] VITALS: BMI 20.9
[2024-11-29 01:53] VITALS: TEMP 98.1
[2024-11-29 07:21] LABS: HEMOGLOBIN 9.8 g/dL (13.7-17.5); MCHC 32.7 g/dl (32.3-36.5); MEAN CELL VOLUME 89.3 fl (79.0-92.2); MEAN PLT VOLUME 10.9 fl (9.4-12.4); PLATELET COUNT 239 x10^3/uL (163-337); RDW 15.4 % (12.2-16.1)
[2024-11-29 07:49] LABS: POTASSIUM 4.1 mmol/L (3.5-5.1)
[2024-11-29 08:05] LABS: CALCIUM 8.4 mg/dL (8.5-10.1)
[2024-11-29 08:06] LABS: ALBUMIN 2.8 g/dl (3.4-5.0)
[2024-11-29 08:07] LABS: MAGNESIUM 1.9 mg/dL (1.8-2.4)
[2024-11-29 08:09] LABS: CREATININE 3.9 mg/dL (0.55-1.3); PHOSPHOROUS 3.9 mg/dL (2.5-4.9)
[2024-11-29 08:10] LABS: BILIRUBIN,TOTAL 0.4 mg/dL (0.2-1); TOT PROT 6.8 g/dl (6.4-8.2)
[2024-11-29] MEDS: ACETAMINOPHEN 325 MG TABLET (FP) PO PRN (11:49)
[2024-11-29 12:37] VITALS: PULSE 65
[2024-11-29 13:50] VITALS: BP 114/70; RESP 17
== END 2024-11-29 16:56 | disposition home or self-care (01) | DRG 710 ==
LOC: JER 11:54 → JERBED 15:29 → J4W 19:01
PROVIDERS: ADMIT Student in an Organized Health Care Education/Training Program; ATTEND Internal Medicine
PROC: 0T788DZ Dilation of Bilateral Ureters with Intraluminal Device, Via Natural or Artificial Opening Endoscopic (ICD-10-PCS; 2024-11-26)
PROC: 0TP98DZ Removal of Intraluminal Device from Ureter, Via Natural or Artificial Opening Endoscopic (ICD-10-PCS; principal; 2024-11-26 17:30)
PROC: 0T7D8ZZ Dilation of Urethra, Via Natural or Artificial Opening Endoscopic (ICD-10-PCS; 2024-11-26 17:30)
DX: A41.9 Sepsis, unspecified organism (principal); N17.9 Acute kidney failure, unspecified; D63.1 Anemia in chronic kidney disease; F17.210 Nicotine dependence, cigarettes, uncomplicated; I12.9 Hypertensive chronic kidney disease with stage 1 through stage 4 chronic kidney disease, or unspecified chronic kidney disease; N13.6 Pyonephrosis; N18.9 Chronic kidney disease, unspecified; N20.0 Calculus of kidney; N39.0 Urinary tract infection, site not specified; N40.1 Benign prostatic hyperplasia with lower urinary tract symptoms; R30.0 Dysuria; R31.9 Hematuria, unspecified
CPT/HCPCS: 0241U-QW; 36415; 71045-TC-FY; 74176-TC; 76000-TC-FY; 80053; 81003; 82803; 83605; 83735; 84100; 84484; 85025; 85027; 86803; 87040; 87086; 87389; 93005; 93010; 94760; 99285-25; C2617; J0131